=== PATIENT | female | born 1955 | race Caucasian/White ===

== ENCOUNTER 2017-03-13 17:27 | Inpatient (IN) | payer MEDICARE ==
[2017-03-12 10:48] LABS: HEMATOCRIT 41.7 % (36.0-48.0); MEAN CORPUS HGB CONC 33.6 g/dL (32.0-36.0); MEAN CORPUSCULAR HEMOGLOB 30.3 pg (26.0-34.0); MEAN PLATELET VOLUME 10.5 fL (9.2-13.0); PLATELET COUNT 255 10/3/uL (150-400); RBC DISTRIBUTION WIDTH 13.7 % (12.0-16.0); RED CELL COUNT 4.62 10/6/uL (4.0-5.6); WHITE BLOOD CELLS 13.6 10/3/uL (4.5-10.5)
[2017-03-12 10:49] LABS: MANUAL DIFF YES %; MEAN CORPUSCULAR VOLUME 90.3 fL (80-100)
[2017-03-12 11:04] LABS: CALCIUM, SERUM 9.6 MG/DL (8.5-10.4); CHLORIDE, SERUM 98 MMOL/L (96-112); CREATININE 1.62 MG/DL (0.55-1.02); GFR AFRICAN AMERICAN 39 ML/MIN (>=60); GFR NON AFRICAN AMERICAN 34 ML/MIN (>=60); POTASSIUM, SERUM 4.4 MMOL/L (3.5-5.3); SODIUM, SERUM 134 MMOL/L (135-148)
[2017-03-12 11:07] LABS: BUN (BLOOD UREA NITROGEN) 23 MG/DL (6-23); CO2 (CARBON DIOXIDE) 26 MMOL/L (24-34); GLUCOSE, SERUM 289 MG/DL (60-99)
[2017-03-12 11:26] LABS: BAND NEUTROPHILS 4 %; LYMPHOCYTES 13 %; LYMPHOCYTES ABSOLUTE (CALC) 1.77 10/3/uL (0.67-4.30); MONOCYTES 4 %; MONOCYTES ABSOLUTE (CALC) 0.54 10/3/uL (0.21-1.20); NEUTROPHILS ABSOLUTE (CALC) 11.29 10/3/uL (2.02-8.40); PLATELET ESTIMATE ADQ (ADEQUATE); RBC MORPHOLOGY NORM (NORMAL); SEGMENTED NEUTROPHIL (0) 79 %; TOTAL NUCLEATED CELLS 100
--- NOTE | ~2017-03-13 | DS ---
Discharge Summary [facility] [address] [place]. [address] NAME: ANEL DEAN ARLENE : 53 STATUS : DIS IN PAT#: [id number] AGE: 61 ADM/REG DATE : 03/13/17 MR#: [id number] REPORT SERV DATE: 03/30/17 DICTATED BY: BANDAR JOHNSON DATE: 03/29/17 REPORT STATUS : Draft TRANSCRIBED BY: CANDELARIO DATE: 03/29/17 Data Collection from hospitalization DISCHARGE DIAGNOSES: 1. Chronic obstructive pulmonary disease with pneumonia. 2. Diabetes mellitus - uncontrolled. 3. Stage 3 chronic kidney disease - improving. 4. Hypoxia secondary to #1. 5. Hypertension. 6. Adrenal incidental adenoma. 7. Retinopathy. 8. Chronic diastolic heart failure. 9. Schizoaffective disorder - bipolar type. 10.Hyperlipidemia. 11.Tobacco use. 12.Venous insufficiency. 13.Morbid obesity. CONSULTATIONS: Dr. Aileen Hastings. PROCEDURES PERFORMED: CT scan of the abdomen and pelvis without contrast, 03/13/2017. DISCHARGE MEDICATIONS: Tylenol 1000 mg with lunch and 500 mg at bedtime as well as 325-650 mg daily as needed; ProAir 2 puffs via inhaler every six hours as needed; albuterol 3 mL via inhaler every four hours as needed; Augmentin 875 mg every 12 hours; Brovana 15 mcg twice a day; aspirin 81 mg daily; Pulmicort 1 nebulized inhaler twice a day as instructed; Maximum D3 50,000 units every 30 days as instructed; Lasix 20 mg at 9 a.m.; Neurontin 200 mg at 9 a.m. and 3 p.m., and 300 mg at bedtime; Haldol 5 mg at bedtime, Lantus 15 units subcutaneously daily; Toprol-XL 25 mg daily; Deltasone as instructed; Prandin as instructed; Crestor 30 mg at bedtime; Spiriva HandiHaler 1 capsule via inhaler daily; and Glucose gel 1 dose as needed as instructed. She was instructed not to continue Z-He, lisinopril, DuoNeb, Klor-Con. CONDITION AT DISCHARGE: Stable. DISPOSITION: The patient was discharged home to be followed by home health care on a low- cholesterol, 1800-calorie diabetic diet with no concentrated carbohydrates and activities as instructed. HOSPITAL COURSE: This is a 61-year-old female, who was transferred to the hospital after she fell at home. In the emergency room, she had a temperature of 100.8, and her systolic blood pressure was in the 80s. She was given a normal saline bolus and started on Rocephin and Zithromax. Unfortunately, after several boluses, her systolic blood pressure remained in the 80s, and she was started on Levophed. During the course of this treatment, her O2 saturation dropped, and she was started on a Ventimask, and her blood work revealed acute renal failure with creatinine of 2.3. On 03/12/2017, her creatinine had been 1.62. The patient wishes were not to pursue aggressive intervention. Levophed was stopped. IV fluids were continued. The patient was sent to the floor. On arrival to the floor, the patient Discharge Summary [address] [place]. [address] NAME: JERMAINEANEL ARLENE : 53 STATUS : DIS IN PAT#: [id number] AGE: 61 ADM/REG DATE : 03/13/17 MR#: [id number] REPORT SERV DATE: 03/30/17 DICTATED BY: BANDAR JOHNSON DATE: 03/29/17 REPORT STATUS : Draft TRANSCRIBED BY: CANDELARIO DATE: 03/29/17 said she felt a little better. We again discussed her wishes to make sure what we had done was in keeping with them and she agreed. Her blood pressure increased to 114/55. She said that she did fall at the boarding home. She did not hit her head. She said she just lost her balance. She said she had been eating and drinking, but she had been urinating a lot more. She was on Bactrim for a diagnosis of urinary tract infection and was also on oxygen because of some mild hypoxia. A CT scan performed in the emergency room showed an early right middle lobe pneumonia. She was admitted to the hospital at this time for further evaluation and treatment. Upon admission, her white blood cell count had increased to 11.5. CT scan of the abdomen showed poorly circumscribed nodular infiltrate in the inferior right middle lobe, most suspicious for early acute pneumonia. The left lung base was clear. She had a 14 mm hypodense nodule on the right adrenal gland consistent with adrenal adenoma. There was a 2 cm hypodense nodule at left adrenal gland consistent with adrenal adenoma. She had right renal atrophy with areas of scarring. There was a cyst in the left lower pole cortex of the kidney. There was some scarring in the left kidney as well. She does have moderate to severe osteoarthritis pattern in the right hip joint with diffuse joint space narrowing, sclerosis, and subarticular cystic changes in the superior acetabulum. She had severe flattening and sclerosis with subarticular cystic change in the left femoral head with superolateral migration relative to the widened acetabulum which was diffusely sclerotic with subarticular cystic changes, and a large marginal osteophyte likely representing chronic longstanding osteonecrosis and collapse of the femoral head and associated severe osteoarthritis. She was in a sinus rhythm. Her sepsis was felt due to pneumonia with underlying chronic obstructive pulmonary disease. Procalcitonin was elevated as well as white blood cell count. Her prognosis was guarded. Rocephin and Zithromax were continued. She received a dose of steroids in the emergency room. Normal saline was continued. She had some rhonchi. We will follow up her blood cultures. Lantus was continued at a lower dose. Level 1 NovoLog sliding scale was being provided. Haldol was continued for her schizoaffective disorder-bipolar type. Crestor and aspirin were continued. She was started on Lovenox for DVT prophylaxis. She is a DNR code status. The following day, she still had a cough and some dyspnea. Her T-max was 99.3. Hypotension had improved with fluids and IV steroids. Lantus and sliding scale insulin were increased. Her antibiotic was changed to Zosyn. Blood cultures were negative thus far. She was seen by Dr. Aileen Hastings regarding persistent wheezing and presumed pneumonia. She said she felt significantly better, but did complain of a cough. She said she was unable to clear her sputum. She has had chronic wheezing since her childhood, but denies a history of asthma. As an outpatient, she is on budesonide and Brovana. She denied having had the Pneumovax and Prevnar 13 vaccine. She agreed with treating the patient with Zosyn. We would consider adding vancomycin, and if her symptoms did not improve or if they were to worsen. On 03/16/2017, she seemed to be feeling better. She said her wheezing had improved. Her cough had decreased. She has been evaluated by Physical Therapy. She was changed to oral steroids. Spiriva was added. We encouraged her to stop smoking. She was afebrile. Her hypotension had improved. The next day, she seemed to be breathing better. Discharge planning was performed. A home O2 evaluation was going to be performed. Antibiotics were continued. She did have some edema in her legs. On 03/18/2017, she was eating well. She was alert and cooperative. Creatinine level was 1.42. Discharge instructions were given. Discharge Summary [address] [address] NAME: ANEL DEAN ARLENE : 53 STATUS : DIS IN PAT#: [id number] AGE: 61 ADM/REG DATE : 03/13/17 MR#: [id number] REPORT SERV DATE: 03/30/17 DICTATED BY: BANDAR JOHNSON DATE: 03/29/17 REPORT STATUS : Draft TRANSCRIBED BY: CANDELARIO DATE: 03/29/17 Due to her improved and stable condition, she was discharged home with the above-stated instructions. Information collected by: Joy Walter I submit the above information as my discharge summary. TG/CANDELARIO Bandar Johnson M.D. / [id number] CC: Bandar Johnson M.D.
--- NOTE | ~2017-03-13 | EHP ---
ER History and Physical [address] [address] NAME: ANEL DEAN ARLENE : 53 STATUS : ADM IN PAT#: [id number] AGE: 61 ADM/REG DATE : 03/13/17 MR#: [id number] REPORT SERV DATE: 03/14/17 DICTATED BY: HOUSTON SAVAGE DATE: 03/14/17 REPORT STATUS : Draft TRANSCRIBED BY: CANDELARIO DATE: 03/14/17 CHIEF COMPLAINT: Weakness. HISTORY OF PRESENT ILLNESS: See the paper chart for full details of the history and physical. This dictation is to augment the paper chart. The patient was recently seen by a mid-level in the ER and was found to be hypotensive necessitating resuscitative efforts here. I became involved in the patient after the first fluid challenge failed to respond. Several fluid challenges were given. The patient received 2 L of crystalloid and ultimately was still hypotensive. A cortisol was ordered by myself and shows that she has some relative adrenal insufficiency with a cortisol of 16, so the patient was started on some steroids given that the patient's blood pressure was still in the 70s and 80s. Levophed drip was started as well necessitating central line placement, though a central line was placed by myself. See the paper chart for full details of this procedure. The patient appears to be in new renal failure with a sepsis syndrome and septic shock as well as possibly adrenal insufficiency as well. The patient denies any steroid use at home. We will defer placing the patient on the floor and placed the patient on IMCU. The patient remarkably is fairly asymptomatic despite blood pressures in the 70s. She is alert and oriented and states that she feels fine. DIAGNOSES: 1. Right middle lobe pneumonia. 2. Acute renal failure. 3. Hypotension with hypotensive shock suspect sepsis. 4. Possible adrenal insufficiency. Greater than 35 minutes critical care time in stabilization of this patient, outside of any procedures. MARVIN Houston Savage DO / [id number] CC: Elsy Johnson M.D.
--- NOTE | ~2017-03-13 | CN ---
Consultation Report [facility] [address] [place]. [address] NAME: ANEL DEAN ARLENE : 53 STATUS : ADM IN [facility]#: [id number] AGE: 61 ADM/REG DATE : 03/13/17 MR#: [id number] REPORT SERV DATE: 03/15/17 DICTATED BY: AILEEN MIRAMONTES DATE: 03/15/17 REPORT STATUS : Draft TRANSCRIBED BY: MODL DATE: 03/15/17 PULMONARY CONSULTATION DATE OF CONSULTATION: 03/15/2017 REASON FOR CONSULTATION: Persistent wheezing and presumed pneumonia. HISTORY OF PRESENT ILLNESS: Ms. Dean is a 61-year-old white female, smoker with COPD, who was admitted from a skilled nursing after a fall. She is being treated for hypoxia, hypotension, COPD exacerbation, and possible pneumonia. Pulmonary was consulted secondary to persistent wheezing and assistance with treatment of presumed pneumonia. The patient has been treated with Rocephin and azithromycin, but per available notes, she worsened, so she is now on Zosyn. Additionally, she is on IV steroids, bronchodilators, nebulized steroids, and supplemental oxygen. She states she feels significantly better, but is complaining of a cough. She states she is unable to clear her sputum. Additionally, she reports she has chronic wheezing since childhood, but does deny a history of asthma. As an outpatient, she is on budesonide 0.5 mg q.12h. and Brovana q.12 hours via nebulization. She is unaware of any other pulmonary medications. She states she has been advised that she has COPD in the past, but is unsure how this diagnosis was made. She also denies having had the Pneumovax and the Prevnar-13 vaccines. No supporting information is currently available. PAST MEDICAL HISTORY: 1. Smoking/tobacco addiction. 2. COPD; per available records, the patient is unsure of how the diagnosis was made, as noted above. 3. Chronic wheezing. 4. Hypertension. 5. Diabetes mellitus. 6. Diabetic retinopathy with chronic kidney disease stage 3. 7. Diastolic dysfunction. 8. Schizoaffective disorder, bipolar type, with significant depression. 9. Recurrent urinary tract infection. 10.Venous insufficiency. 11.Obesity. 12.Hyperlipidemia. 13.Previous foot surgery. 14.Peripheral neuropathy. 15.Tubal ligation. 16.Previous pneumonia with a right-sided pleural effusion in 2011. FAMILY HISTORY: She denies a family history of pulmonary diseases. SOCIAL HISTORY: She smokes six cigarettes per day and has done so for 45 years. She denies ethanol intake, past/present drug use, chewing tobacco, or occupational exposures. She is Consultation Report [address] [address] NAME: ANEL DEAN ARLENE : 53 STATUS : ADM IN [facility]#: [id number] AGE: 61 ADM/REG DATE : 03/13/17 MR#: [id number] REPORT SERV DATE: 03/15/17 DICTATED BY: AILEEN MIRAMONTSE DATE: 03/15/17 REPORT STATUS : Draft TRANSCRIBED BY: CANDELARIO DATE: 03/15/17 unmarried and has two children. She is a resident of a skilled nursing. MEDICATIONS: Outpatient and inpatient medications were reviewed and are as documented in the record. Per available information, she was on budesonide 0.5 mg q.12h. and Brovana q.12h. via nebulization as an outpatient. ALLERGIES: SHE DENIES MEDICATION ALLERGIES. REVIEW OF SYSTEMS: Ten-point system review was conducted and is remarkable for the symptoms as described in the history of present illness. PHYSICAL EXAMINATION: VITAL SIGNS: Temperature 97.0 degrees, heart rate 68, blood pressure 113/59, respiratory rate 18, and oxygen saturation 94% on supplemental oxygen at a flow rate of 4 L/minute. GENERAL: Obese white female. Alert, oriented, no apparent distress. HEENT: Normocephalic. Atraumatic. There is no scleral icterus. The conjunctivae are clear. The oropharynx is clear. NECK: Supple. No lymphadenopathy was noted. LUNGS: There are coarse breath sounds throughout. There are scattered expiratory wheezes in all prasad. There are no crackles or rhonchi. HEART: Regular rate and rhythm. No ectopy was noted. ABDOMEN: Soft. Nontender. Nondistended. There are normal bowel sounds in all four quadrants. BILATERAL EXTREMITIES: There is 1+ pretibial edema. There is no cyanosis or clubbing. NEUROLOGICAL: Limited exam was found to be nonfocal. SKIN: No rashes were noted. LABORATORY RESULTS: Labs were reviewed and are as documented in the record. Notable labs include a white blood cell count of 8.5 and a procalcitonin of 0.60. There are sputum cultures ordered, but have thus far not been collected. IMAGING: Chest x-ray done on 03/14/2017 did not reveal any infiltrates or effusions. There are chronic changes in the left base. ASSESSMENT AND PLAN: Ms. Dean is a 61-year-old white female, smoker, admitted with fever, cough, hypoxia, wheezing, and chronic obstructive pulmonary disease exacerbation, as well as an elevated procalcitonin. There is no evidence of infiltrate on the most recent chest x- ray. She is being treated with pneumonia and her antibiotics were recently changed to Zosyn as noted above. Additionally, she has been treated with bronchodilators and systemic and nebulized steroids for chronic obstructive pulmonary disease exacerbation, but she has had persistent wheezing and a poor response to therapy thus far. I agree with treating with Zosyn. Consider adding vancomycin if her symptoms do not improve Consultation Report [address] [place]. [address] NAME: ANEL DEAN ARLENE : 53 STATUS : ADM IN [facility]#: [id number] AGE: 61 ADM/REG DATE : 03/13/17 MR#: [id number] REPORT SERV DATE: 03/15/17 DICTATED BY: AILEEN MIRAMONTES DATE: 03/15/17 REPORT STATUS : Draft TRANSCRIBED BY: CANDELARIO DATE: 03/15/17 or if they worsen. RECOMMENDATIONS: 1. Recommend rechecking procalcitonin. 2. Would improve pulmonary toilet. She is on EzPAP. I would add a flutter to her regimen. 3. Awaiting sputum cultures. 4. Recommend increasing her budesonide dose to 1 mg q.12h. 5. Would continue systemic steroids. 6. Check BNP. 7. Increase the frequency of her Proventil to every four hours. 8. She was counseled for approximately five minutes regarding smoking cessation. 9. Recommend she has a Pneumovax and the Prevnar-13 vaccine if she has not had these thus far. She should have these once she is at her baseline and off systemic steroids. 10.Further recommendations to follow dependent on the response to therapy. Thank you very much for this consultation. JESI/CANDELARIO Aileen Miramontes M.D. / [id number] CC: Elsy Johnson M.D.
--- NOTE | ~2017-03-13 | HP ---
History And Physical [id number] [place]. [address] NAME: ANEL DEAN ARLENE : 53 STATUS : ADM IN [facility]#: [id number] AGE: 61 ADM/REG DATE : 03/13/17 MR#: [id number] REPORT SERV DATE: 03/14/17 DICTATED BY: KATALINA KIRBY DATE: 03/14/17 REPORT STATUS : Draft TRANSCRIBED BY: MODGloria DATE: 03/14/17 DATE OF ADMISSION: 03/13/2017 CHIEF COMPLAINT: Fall and found to have fever and hypotension. HISTORY OF PRESENT ILLNESS: Ms. Dean is a 61-year-old female who was transferred to the hospital yesterday late evening after she fell at home. In the ER, she had a temperature of 100.8, and her systolic blood pressure was in the 80s. She was given normal saline bolus and started on Rocephin and Zithromax. Unfortunately, after several boluses, her systolic blood pressure remained in the 80s and she was started on Levophed. During the course of this treatment, her O2 saturation dropped and she was started on a Venti-mask, and her blood work revealed acute renal failure with a creatinine of 2.3, and on the 03/12/2017, her creatinine was 1.62. The plan was to transfer her to the MICU. I eventually found her Advance directives, and I spoke to her designated decision maker, and the patient wishes were not to pursue aggressive interventions, so I did ask the ER to stop the Levophed, continue IV fluids, and to send the patient to the floor. On arrival to the floor, the patient said she felt a little better. I again discussed her wishes to make sure what we have done was in keeping with them and she agreed. Her blood pressure is now up to 114/55. The patient said she did fall at the boarding home. She did not hit her head. She said she just lost her balance. She says she has been eating and drinking, but she has been urinating a lot more. She was on Bactrim for diagnosis of a urinary tract infection, and she was also on oxygen because of some mild hypoxia. I guess a chest x-ray done at [facility] did not show a pneumonia. However, a CT scan done in the ER showed an early right middle lobe pneumonia. ALLERGIES: NO KNOWN DRUG ALLERGIES. CURRENT MEDICATIONS: Included Z-He, ProAir, Lantus 15 units at bedtime, 30 mg at bedtime, Neurontin 200 mg twice daily, Lasix 20 mg daily, glipizide 5 mg twice daily, haloperidol 5 mg at bedtime, Tylenol 500 mg one to two tablets twice a day, Metoprolol-XL 25 mg daily, lisinopril 20 mg twice daily, KCl 10 mEq daily, Crestor 20 one and one-half tablets at bedtime, aspirin 81 mg daily, Brovana nebs twice daily, vitamin D3 once monthly, DuoNeb q.4 hours as needed, and Pulmicort nebs 0.5/2 mL twice daily. PAST MEDICAL HISTORY: Significant for type 2 diabetes with retinopathy, chronic kidney disease stage 3, hypertension with LVH, chronic diastolic heart failure, schizoaffective disorder, bipolar type, hyperlipidemia recurrent UTI, COPD, she is an active smoker, venous insufficiency, and morbid obesity. SOCIAL HISTORY: She lives at a boarding home. Designated decisionmaker is Nena Nicole. The patient continues to smoke six cigarettes per day. No ETOH and no illicit drugs. FAMILY HISTORY: Noncontributory. REVIEW OF SYSTEMS: History And Physical [address] [address] NAME: ANEL DEAN ARLENE : 53 STATUS : ADM IN [facility]#: [id number] AGE: 61 ADM/REG DATE : 03/13/17 MR#: [id number] REPORT SERV DATE: 03/14/17 DICTATED BY: KATALINA KIRBY DATE: 03/14/17 REPORT STATUS : Draft TRANSCRIBED BY: CANDELARIO DATE: 03/14/17 No chest pain, dizziness, or abdominal pain. She does get occasional lower back pain. She is incontinent of urine, but denies dysuria, and she states that she has been eating, but she probably has not been drinking as much because of her incontinent and fear of wetting her bed. PHYSICAL EXAMINATION: VITAL SIGNS: Temperature is 98.1, blood pressure is 114/55, pulse 76, respiratory rate is 18, and O2 saturation is 96% on 4 L. GENERAL: She is a morbidly obese woman who is chronically ill appearing. HEENT: Normocephalic, atraumatic. Conjunctiva not injected. No scleral icterus. She definitely has a prominent opacification behind her left cornea and she only has a few teeth with no apparent dentures. NECK: Supple. CARDIAC: Regular rate and rhythm. No murmur. She has a right subclavian central line. LUNGS: She has diffuse wheezing. Her breath sounds are just decreased in general. There were no rales appreciated. ABDOMEN: Positive bowel sounds. Soft, nondistended, nontender, and obese. GENITOURINARY: No Parham. EXTREMITIES: Large but no pitting edema. NEUROLOGIC: She is alert. She is oriented x3. She is fluent. She follows simple commands. She is a pretty fair historian. She just has generalized weakness. SKIN: She has no pressure ulcers. She does have some small ecchymotic lesions where she states she gets her insulin on her belly. LABORATORY EVALUATION: White count on admission was 10.9, today it is 11.5 with a hemoglobin of 14.4, normal platelets. Chemistries are all within normal limits except for admitting BUN of 35 and a creatinine of 2.38. Her BUN this morning was 46 with a creatinine of 2.62. Albumin is low at 3.1, it has dropped lower to 2.8, AST was 55 on admission, now it is 76. Lipase was normal. Cortisol was normal. UA showed trace leukocyte esterase, 7 wbc's, and occasional bacteria. CAT scan of the abdomen showed a supple ill-defined as well as poorly circumscribed nodular infiltrate in the inferior right middle lobe, most suspicious for an early acute pneumonia. Left lung base is clear. She has a 14 mm hypodense nodule in the right adrenal gland consistent with an adrenal adenoma. She has a 2 cm hypodense nodule, left adrenal gland consistent with adrenal adenoma. She has right renal atrophy with areas of scarring. She has a cyst in the left lower pole cortex of her kidney. She also has scarring in the left kidney as well. She has moderate severe osteoarthritis pattern right hip joint with diffuse joint space narrowing, sclerosis, and subarticular cystic changes in the superior acetabulum. She has severe flattening and sclerosis with subarticular cystic change in left femoral head with superior lateral migration relative to the widened acetabulum which is diffusely sclerotic with subarticular cystic changes and a large marginal osteophyte likely representing chronic long-standing osteonecrosis and collapse of the femoral head and associated severe osteoarthritis. Chest x-ray done showed no acute process, just chronic blunting of the left costophrenic angle. History And Physical [address] [facility] [place]. [address] NAME: ANEL DEAN ARLENE : 53 STATUS : ADM IN PAT#: [id number] AGE: 61 ADM/REG DATE : 03/13/17 MR#: [id number] REPORT SERV DATE: 03/14/17 DICTATED BY: KATALINA KIRBY DATE: 03/14/17 REPORT STATUS : Draft TRANSCRIBED BY: CANDELARIO DATE: 03/14/17 EKG showed sinus rhythm at 91 beats per minute with no acute ST changes. IMPRESSION AND PLAN: 1. Sepsis due to pneumonia with underlying chronic obstructive pulmonary disease. The pneumonia was found on CT scan and not evident on chest x-ray. She was hypotensive. She did have an elevated procalcitonin and elevated WBC. Clinically, she seemed a little better, but her prognosis is still guarded. We will continue Rocephin and Zithromax for now. She was given a dose of steroids in the ER. We will continue normal saline. I would like to reduce it to 100 mL for 6 hours and then 75 with her history of diastolic heart failure. I do not know how significant that is, but she is eating and drinking. We will hold her antihypertensives and her furosemide. We will not give any more steroids for today, but may need some tomorrow. She still continues to have rhonchi. We will follow up on her blood cultures, and I do not suspect her urine is contributing. 2. Elevation in AST. Not sure if this is chronic, but if not, it is likely due to ischemia to the liver and we will just continue to monitor. 3. Type 2 diabetes. Her blood glucose now is greater than 300. I will not restart her hypoglycemic, but I will continue her Lantus at a lower dose and do a NovoLog level 1 sliding scale. 4. Acute on chronic renal failure. She did have a CAT scan, there does not seem to be any acute blockage in her genitourinary system. I suspect this is all due to her sepsis, and we will continue IV fluids, and we will check another renal function in the morning. 5. Schizoaffective disorder, bipolar type. Continue Haldol. 6. Hyperlipidemia. Continue Crestor and aspirin. 7. Deep venous thrombosis prophylaxis. Start Lovenox 30 subcu daily. The patient is a DNR and I will complete the RN pronouncement form because as mentioned before, her condition is still guarded, but if things should progress, again we will not implement more aggressive measures per her wishes. ANDRÉS/CANDELARIO Katalina Kirby M.D. / [id number] CC: Elsy Johnson M.D.
[~2017-03-13 17:27] MED LIST: ACET500CAP PO; CRESTOR PO; CRESTOR10 PO; CRESTOR20 MG PO; DUONEB INH; GLIPIZIDE; GLIPIZIDE PO; GLUCOPHAGE1000 MG PO; GLUCOTRO10 PO; GLUCPH PO; H5 PO; HALDOL PO; HALF81 PO; HCTZ25B PO; HYDROCHLOROT25 MG PO; HYDROCHLOROTHIAZIDE; KLOR-CON; KLOR-CON 1010 MEQ PO; KLOR-CON M1010 MEQ PO; LEVAQUIN750 MG PO; LISINOPRIL; METFORMIN; METOPROLOL; NEUR100 PO; NEUR300 PO; NEURONTIN PO; PRIN10 PO; PROAIR HFA INH; PULRESP.5 INH; TOPXL25 PO; TYLENOL 8 HR650 MG PO; VITD PO
[2017-03-13 18:20] LABS: BASOPHILS 0.4 %; BASOPHILS ABSOLUTE 0.04 10/3/uL (0.0-0.16); EOSINOPHILS 0 %; HEMATOCRIT 43.2 % (36.0-48.0); HEMOGLOBIN 14.4 g/dL (12.0-16.0); IMMATURE GRANULOCYTES 0.4 %; IMMATURE GRANULOCYTES ABSOLUTE 0.04 10/3/uL (0.0-0.11); LYMPHOCYTES 24.3 %; LYMPHOCYTES ABSOLUTE 2.65 10/3/uL (0.67-4.30); MANUAL DIFF NO %; MEAN CORPUS HGB CONC 33.3 g/dL (32.0-36.0); MEAN CORPUSCULAR HEMOGLOB 30.4 pg (26.0-34.0); MEAN CORPUSCULAR VOLUME 91.1 fL (80-100); MEAN PLATELET VOLUME 10.5 fL (9.2-13.0); MONOCYTES 4.9 %; MONOCYTES ABSOLUTE 0.53 10/3/uL (0.21-1.20); NEUTROPHILS ABSOLUTE 7.66 10/3/uL (2.02-8.40); PLATELET COUNT 206 10/3/uL (150-400); RBC DISTRIBUTION WIDTH 14.4 % (12.0-16.0); RED CELL COUNT 4.74 10/6/uL (4.0-5.6); WHITE BLOOD CELLS 10.9 10/3/uL (4.5-10.5)
[2017-03-13 18:55] LABS: A/G RATIO 0.8 (0.7-1.9); ALBUMIN 3.1 G/DL (3.5-5.0); ALKALINE PHOSPHATASE 95 U/L (45-117); CALCIUM, SERUM 8.7 MG/DL (8.5-10.4); CHLORIDE, SERUM 106 MMOL/L (96-112); CO2 (CARBON DIOXIDE) 25 MMOL/L (24-34); GLOBULIN 3.7 G/DL (2.5-4.1); POTASSIUM, SERUM 3.9 MMOL/L (3.5-5.3); SGPT(ALT) 24 U/L (5-65); TOTAL BILIRUBIN 0.4 MG/DL (0-1.2); TOTAL PROTEIN 6.8 G/DL (6.0-8.5)
[2017-03-13 18:56] LABS: BUN (BLOOD UREA NITROGEN) 35 MG/DL (6-23); CREATININE 2.32 MG/DL (0.55-1.02); GFR AFRICAN AMERICAN 25 ML/MIN (>=60); GFR NON AFRICAN AMERICAN 22 ML/MIN (>=60); GLUCOSE, SERUM 153 MG/DL (60-99); LACTATE 1.2 MMOL/L (0.3-2.4); SGOT(AST) 55 U/L (5-40); SODIUM, SERUM 141 MMOL/L (135-148)
[2017-03-13] MEDS ORDERED: *UNABLE1 (20:36)
[2017-03-13 20:40] LABS: ASCORBIC ACID (UR NOT ORDER) NEG (NEG); BILIRUBIN, URINE NEGATIVE (NEG); ER URINALYSIS TAT 0 Hrs 20 Mins; KETONE, URINE NEGATIVE (NEG); LEUKOCYTE ESTERASE(NOT OR TRACE (NEG); NITRITE (URINE) NEG (NEG); WBC (NOT ORDERED) (RFLEX) 7 (0-5)
[2017-03-14 06:06] LABS: BASOPHILS 0.3 %; BASOPHILS ABSOLUTE 0.03 10/3/uL (0.0-0.16); EOSINOPHILS 0 %; IMMATURE GRANULOCYTES 0.3 %; IMMATURE GRANULOCYTES ABSOLUTE 0.04 10/3/uL (0.0-0.11); LYMPHOCYTES ABSOLUTE 1.15 10/3/uL (0.67-4.30); MEAN CORPUS HGB CONC 32.4 g/dL (32.0-36.0); MEAN CORPUSCULAR HEMOGLOB 29.4 pg (26.0-34.0); MEAN CORPUSCULAR VOLUME 90.7 fL (80-100); MEAN PLATELET VOLUME 10.5 fL (9.2-13.0); MONOCYTES 2.2 %; MONOCYTES ABSOLUTE 0.25 10/3/uL (0.21-1.20); NEUTROPHILS 87.2 %; NEUTROPHILS ABSOLUTE 10.06 10/3/uL (2.02-8.40); PLATELET COUNT 196 10/3/uL (150-400); RBC DISTRIBUTION WIDTH 14.8 % (12.0-16.0); RED CELL COUNT 4.08 10/6/uL (4.0-5.6); WHITE BLOOD CELLS 11.5 10/3/uL (4.5-10.5)
[2017-03-14 06:07] LABS: ER CBC TAT 0 Hrs 14 Mins; MANUAL DIFF NO %
[2017-03-14 11:01] LABS: A/G RATIO 0.8 (0.7-1.9); ALBUMIN 2.8 G/DL (3.5-5.0); ALKALINE PHOSPHATASE 90 U/L (45-117); CHLORIDE, SERUM 103 MMOL/L (96-112); CO2 (CARBON DIOXIDE) 21 MMOL/L (24-34); CREATININE 2.62 MG/DL (0.55-1.02); GFR AFRICAN AMERICAN 22 ML/MIN (>=60); GFR NON AFRICAN AMERICAN 19 ML/MIN (>=60); GLOBULIN 3.6 G/DL (2.5-4.1); POTASSIUM, SERUM 4.5 MMOL/L (3.5-5.3); SGOT(AST) 76 U/L (5-40); SGPT(ALT) 34 U/L (5-65); SODIUM, SERUM 137 MMOL/L (135-148); TOTAL BILIRUBIN 0.3 MG/DL (0-1.2); TOTAL PROTEIN 6.4 G/DL (6.0-8.5)
[2017-03-14 11:02] LABS: BUN (BLOOD UREA NITROGEN) 46 MG/DL (6-23); GLUCOSE, SERUM 329 MG/DL (60-99)
[2017-03-14 11:43] LABS: PHOSPHORUS, SERUM 5.4 MG/DL (2.5-4.5)
[2017-03-15 06:19] LABS: BASOPHILS 0.1 %; BASOPHILS ABSOLUTE 0.01 10/3/uL (0.0-0.16); EOSINOPHILS 0 %; HEMATOCRIT 33.5 % (36.0-48.0); HEMOGLOBIN 11.1 g/dL (12.0-16.0); IMMATURE GRANULOCYTES 0.1 %; IMMATURE GRANULOCYTES ABSOLUTE 0.01 10/3/uL (0.0-0.11); LYMPHOCYTES 12.5 %; LYMPHOCYTES ABSOLUTE 1.06 10/3/uL (0.67-4.30); MEAN CORPUS HGB CONC 33.1 g/dL (32.0-36.0); MEAN CORPUSCULAR HEMOGLOB 29.4 pg (26.0-34.0); MEAN CORPUSCULAR VOLUME 88.6 fL (80-100); MONOCYTES 5.7 %; MONOCYTES ABSOLUTE 0.48 10/3/uL (0.21-1.20); NEUTROPHILS 81.6 %; NEUTROPHILS ABSOLUTE 6.91 10/3/uL (2.02-8.40); PLATELET COUNT 197 10/3/uL (150-400); RBC DISTRIBUTION WIDTH 14.4 % (12.0-16.0); RED CELL COUNT 3.78 10/6/uL (4.0-5.6); WHITE BLOOD CELLS 8.5 10/3/uL (4.5-10.5)
[2017-03-15 06:21] LABS: MANUAL DIFF NO %
[2017-03-15 06:47] LABS: BUN (BLOOD UREA NITROGEN) 45 MG/DL (6-23); CALCIUM, SERUM 8.5 MG/DL (8.5-10.4); CHLORIDE, SERUM 107 MMOL/L (96-112); CO2 (CARBON DIOXIDE) 23 MMOL/L (24-34); CREATININE 2.19 MG/DL (0.55-1.02); GFR AFRICAN AMERICAN 27 ML/MIN (>=60); GFR NON AFRICAN AMERICAN 23 ML/MIN (>=60); POTASSIUM, SERUM 4.2 MMOL/L (3.5-5.3); SODIUM, SERUM 138 MMOL/L (135-148); ULTRASENSITIVE TSH 0.575 MCIU/ML (0.358-3.740)
[2017-03-15 06:48] LABS: GLUCOSE, SERUM 244 MG/DL (60-99)
[2017-03-15] MEDS ORDERED: Z-PAK PO (09:22)
[2017-03-15] MEDS ORDERED: PROAIR HFA INH (09:22)
[2017-03-15] MEDS ORDERED: L20 PO (09:23)
[2017-03-15] MEDS ORDERED: NEUR100 PO (09:23)
[2017-03-15] MEDS ORDERED: NEUR300 PO (09:23)
[2017-03-15] MEDS ORDERED: LANTUS SC (09:23)
[2017-03-15] MEDS ORDERED: GLUCOTROL5 PO (09:24)
[2017-03-15] MEDS ORDERED: H5 PO (09:24)
[2017-03-15] MEDS ORDERED: ACET500CAP PO ×2 (09:25)
[2017-03-15] MEDS ORDERED: PRIN20 PO (09:25)
[2017-03-15] MEDS ORDERED: TOPXL25 PO (09:25)
[2017-03-15] MEDS ORDERED: ASAB PO (09:26)
[2017-03-15] MEDS ORDERED: KLOR-CON M2020 MEQ PO (09:26)
[2017-03-15] MEDS ORDERED: CRESTOR20 MG PO (09:26)
[2017-03-15] MEDS ORDERED: BROVANA15 MCG INH (09:26)
[2017-03-15] MEDS ORDERED: DUONEB INH (09:27)
[2017-03-15] MEDS ORDERED: PULRESP.5 INH (09:27)
[2017-03-15] MEDS ORDERED: MAXIMUM D3 PO (09:27)
[2017-03-15] MEDS ORDERED: GLUTOSE GEL PO (09:28)
[2017-03-15] MEDS ORDERED: T PO (09:28)
[2017-03-16 06:58] LABS: BASOPHILS 1.1 %; BASOPHILS ABSOLUTE 0.06 10/3/uL (0.0-0.16); EOSINOPHILS 0 %; HEMATOCRIT 32.3 % (36.0-48.0); HEMOGLOBIN 10.9 g/dL (12.0-16.0); IMMATURE GRANULOCYTES 0.4 %; IMMATURE GRANULOCYTES ABSOLUTE 0.02 10/3/uL (0.0-0.11); LYMPHOCYTES 21.6 %; LYMPHOCYTES ABSOLUTE 1.22 10/3/uL (0.67-4.30); MEAN CORPUS HGB CONC 33.7 g/dL (32.0-36.0); MEAN CORPUSCULAR HEMOGLOB 30.4 pg (26.0-34.0); MEAN CORPUSCULAR VOLUME 90.2 fL (80-100); MEAN PLATELET VOLUME 9.8 fL (9.2-13.0); MONOCYTES 6.2 %; MONOCYTES ABSOLUTE 0.35 10/3/uL (0.21-1.20); NEUTROPHILS 70.7 %; NEUTROPHILS ABSOLUTE 3.99 10/3/uL (2.02-8.40); PLATELET COUNT 205 10/3/uL (150-400); RBC DISTRIBUTION WIDTH 14.3 % (12.0-16.0); RED CELL COUNT 3.58 10/6/uL (4.0-5.6); WHITE BLOOD CELLS 5.6 10/3/uL (4.5-10.5)
[2017-03-16 07:03] LABS: MANUAL DIFF NO %
[2017-03-16 07:18] LABS: CALCIUM, SERUM 8.9 MG/DL (8.5-10.4); CHLORIDE, SERUM 111 MMOL/L (96-112); CO2 (CARBON DIOXIDE) 21 MMOL/L (24-34); GFR AFRICAN AMERICAN 37 ML/MIN (>=60); GFR NON AFRICAN AMERICAN 32 ML/MIN (>=60); GLUCOSE, SERUM 246 MG/DL (60-99); POTASSIUM, SERUM 4.4 MMOL/L (3.5-5.3); SGOT(AST) 61 U/L (5-40); SGPT(ALT) 49 U/L (5-65); SODIUM, SERUM 142 MMOL/L (135-148)
[2017-03-16 07:19] LABS: BUN (BLOOD UREA NITROGEN) 33 MG/DL (6-23)
[2017-03-16 10:28] LABS: PROCALCITONIN 0.18 ng/mL (<0.5)
[2017-03-17 04:57] LABS: HEMATOCRIT 32.6 % (36.0-48.0); HEMOGLOBIN 10.8 g/dL (12.0-16.0); MEAN CORPUS HGB CONC 33.1 g/dL (32.0-36.0); MEAN CORPUSCULAR HEMOGLOB 29.8 pg (26.0-34.0); MEAN CORPUSCULAR VOLUME 89.8 fL (80-100); MEAN PLATELET VOLUME 9.6 fL (9.2-13.0); PLATELET COUNT 233 10/3/uL (150-400); RBC DISTRIBUTION WIDTH 14.2 % (12.0-16.0); RED CELL COUNT 3.63 10/6/uL (4.0-5.6)
[2017-03-17 04:58] LABS: MANUAL DIFF YES %
[2017-03-17 05:07] LABS: CALCIUM, SERUM 9.2 MG/DL (8.5-10.4); CHLORIDE, SERUM 108 MMOL/L (96-112); CO2 (CARBON DIOXIDE) 24 MMOL/L (24-34); CREATININE 1.53 MG/DL (0.55-1.02); GFR AFRICAN AMERICAN 42 ML/MIN (>=60); GFR NON AFRICAN AMERICAN 36 ML/MIN (>=60); GLUCOSE, SERUM 242 MG/DL (60-99); POTASSIUM, SERUM 4.6 MMOL/L (3.5-5.3); SODIUM, SERUM 139 MMOL/L (135-148)
[2017-03-17 05:08] LABS: BUN (BLOOD UREA NITROGEN) 26 MG/DL (6-23)
[2017-03-17 05:43] LABS: LYMPHOCYTES 24 %; LYMPHOCYTES ABSOLUTE (CALC) 1.44 10/3/uL (0.67-4.30); MONOCYTES 8 %; MONOCYTES ABSOLUTE (CALC) 0.48 10/3/uL (0.21-1.20); NEUTROPHILS ABSOLUTE (CALC) 4.08 10/3/uL (2.02-8.40); PLATELET ESTIMATE ADQ (ADEQUATE); RBC MORPHOLOGY NORM (NORMAL); SEGMENTED NEUTROPHIL (0) 68 %; TOTAL NUCLEATED CELLS 100
[2017-03-18 06:18] LABS: BUN (BLOOD UREA NITROGEN) 26 MG/DL (6-23); CALCIUM, SERUM 9.4 MG/DL (8.5-10.4); CHLORIDE, SERUM 104 MMOL/L (96-112); CO2 (CARBON DIOXIDE) 27 MMOL/L (24-34); CREATININE 1.42 MG/DL (0.55-1.02); GFR AFRICAN AMERICAN 46 ML/MIN (>=60); GFR NON AFRICAN AMERICAN 39 ML/MIN (>=60); GLUCOSE, SERUM 266 MG/DL (60-99); POTASSIUM, SERUM 4.5 MMOL/L (3.5-5.3); SODIUM, SERUM 138 MMOL/L (135-148)
[2017-03-18] MEDS ORDERED: AUG875 PO (12:22)
[2017-03-18] MEDS ORDERED: ALBUTEROL0.083 % INH (12:32)
[2017-03-18] MEDS ORDERED: PRAND1 PO (12:32)
[2017-03-18] MEDS ORDERED: SPIRIVA INH (12:34)
[2017-03-18] MEDS ORDERED: P20 PO ×2 (12:36)
[2017-03-18] MEDS ORDERED: P10 PO (12:37)
== END 2017-03-18 20:55 | disposition home or self-care (01) | DRG 190 ==
LOC: ER 17:27 → 5SO 22:39 → ER/OF 03-14 03:06 → MIC 03-14 06:50 → 6NO 03-14 08:28
PROVIDERS: Emergency Medicine; Family Medicine; Hospitalist; Internal Medicine Geriatric Medicine; Physician Assistant
DX: J44.0 Chronic obstructive pulmonary disease with (acute) lower respiratory infection (principal); J18.9 Pneumonia, unspecified organism; I13.0 Hypertensive heart and chronic kidney disease with heart failure and stage 1 through stage 4 chronic kidney disease, or unspecified chronic kidney disease; N17.9 Acute kidney failure, unspecified; E11.22 Type 2 diabetes mellitus with diabetic chronic kidney disease; N18.3 Chronic kidney disease, stage 3 (moderate); I50.32 Chronic diastolic (congestive) heart failure; J44.1 Chronic obstructive pulmonary disease with (acute) exacerbation; E11.649 Type 2 diabetes mellitus with hypoglycemia without coma; R09.02 Hypoxemia; W19.XXXA Unspecified fall, initial encounter; E11.319 Type 2 diabetes mellitus with unspecified diabetic retinopathy without macular edema; F25.0 Schizoaffective disorder, bipolar type; I87.2 Venous insufficiency (chronic) (peripheral); F17.210 Nicotine dependence, cigarettes, uncomplicated; E78.5 Hyperlipidemia, unspecified; E11.42 Type 2 diabetes mellitus with diabetic polyneuropathy; E66.9 Obesity, unspecified; M19.90 Unspecified osteoarthritis, unspecified site; E11.65 Type 2 diabetes mellitus with hyperglycemia; T38.0X5A Adverse effect of glucocorticoids and synthetic analogues, initial encounter; Z87.440 Personal history of urinary (tract) infections; Z79.4 Long term (current) use of insulin
CPT/HCPCS: 71010; 74176; 80048; 80053; 81001; 82533; 82962; 83605; 83690; 83735; 83835; 83880; 84100; 84145; 84443; 84450; 84460; 85025; 87040; 93005; 94640; 94668; 97110-GP; 97116-GP; 97161-GP; 99291; A9270-GY; J0456; J1720; J2440; J2543; J3370; P9045